=== PATIENT | male | born 1980 | race Caucasian/White ===

== ENCOUNTER 2016-05-13 07:33 | Emergency (ER) | payer SELFPAY ==
[2016-05-13 07:45] VITALS: TEMP 96.9
[2016-05-13] MEDS ORDERED: SODIUM CHLORIDE 0.9% 1000ML 1,000 ML IVS ONE (08:01)
--- NOTE | 2016-05-13 08:05 | ED.PDOC ---
History of Present Illness - General Chief Complaint: General Time Seen by Provider: 05/13/16 07:55 Source: patient - History of Present Illness Initial Comments: C/O WEAKNESS, DIZZINESS, FATIGUE AND COUGH Timing/Duration: other - DAYS Severity: mild Improving Factors: nothing Worsening Factors: nothing Associated Symptoms: cough Allergies/Adverse Reactions: Allergies NO KNOWN ALLERGY Allergy (Verified 12/19/15 23:38) Home Medications: Ambulatory Orders Trifluoperazine HCl 10 mg PO DAILY 05/13/16 Review of Systems - Review of Systems Constitutional: Denies: chills, fever EENTM: Denies: blurred vision, ear pain, throat pain 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 Denies: short of breath, wheezing Cardiology: Denies: chest pain, palpitations, syncope Gastrointestinal/Abdominal: Denies: abdominal pain, diarrhea, nausea, vomiting Genitourinary: States: no symptoms reported Musculoskeletal: States: no symptoms reported Skin: States: no symptoms reported Neurological: States: other - LIGHT HEADEDNESS, NO VERTIGO Endocrine: States: no symptoms reported Hematologic/Lymphatic: States: no symptoms reported Past Medical History (General) - Patient Medical History Hx Seizures: No Hx Stroke: No Hx Dementia: No Hx Asthma: No Hx of COPD: No Hx Cardiac Disorders: No Hx Congestive Heart Failure: No Hx Pacemaker: No Hx Hypertension: Yes Hx Thyroid Disease: No Hx Diabetes: No Hx Gastroesophageal Reflux: No Hx Renal Disease: No Hx of HIV: No Hx MRSA: No Hx Other - free text: SCHIZOPHRENIA - Vaccination History Hx Tetanus, Diphtheria Vaccination: No Hx Influenza Vaccination: No Hx Pneumococcal Vaccination: No - Social History Hx Tobacco Use: Yes Hx Chewing Tobacco Use: No Hx Alcohol Use: Yes Hx Substance Use: No Hx Substance Use Treatment: Yes Hx Depression: No Hx Physical Abuse: No Hx Emotional Abuse: No Hx Suspected Abuse: No Family Medical History - Family History Mother Family History: No Known Living Status: Still Living Physical Exam - Physical Exam General Appearance: Comfortable, No apparent distress, Other - SMELLS OF ETOH Eye Exam: bilateral normal Ears, Nose, Throat: normal ENT inspection, normal pharynx Neck: non-tender, supple, normal inspection Respiratory: lungs clear, normal breath sounds, no respiratory distress Cardiovascular/Chest: regular rate, rhythm, no murmur Gastrointestinal/Abdominal: non tender, soft, no organomegaly Back Exam: normal inspection, no CVA tenderness Extremity: normal range of motion, non-tender, normal inspection Neurologic: no motor/sensory deficits, alert, normal mood/affect, oriented x 3 Skin Exam: normal color Lymphatic: no adenopathy Progress - Progress Progress: 05/13/16 09:45 DISCUSSED WITH PT HIS LAB RESULTS AND THAT I THOUGHT HIS CONDITION WAS VIRAL. HE INSISTS THERE IS SOMETHING WRONG WITH HIM AND IS CONCERNED BECAUSE HE " TASTED RABBIT BLOOD" THE OTHER DAY. I REASSURED HIM THERE WAS NO EVIDENCE AT THIS POINT OF A SYSTEMIC INFECTION AND TOLD HIM WE WOULD REEVALUATE HIS SYMPTOMS AFTER HIS FLUID BOLUS. AFTER ABOUT 300CC OF BOLUS PATIENT STATES HE DOES NOT WANT TO STAY ANYMORE HE WOULD LIKE TO SEE SOMEONE ELSE. HIS RIDE WAS HERE AND ENCOURAGED HIM TO STAY MULTIPLE TIMES BUT HE REFUSED. DISCUSSED RISKS VS BENEFITS OF LEAVING INCLUDING INCOMPLETE W/U, MISSED DIAGNOSIS, PERMANENT DISABILITY AND PT STILL REFUSES TO STAY. SIGNED OUT AMA. Departure - Departure Clinical Impression: Viral syndrome, Alcohol use, Hypokalemia Time of Disposition: 09:52 Disposition: Left Against Medical Advice Condition: Fair Departure Forms: ED Discharge - Pt. Copy, Patient Portal Self Enrollment Home Medications: Ambulatory Orders Trifluoperazine HCl 10 mg PO DAILY 05/13/16
--- NOTE | 2016-05-13 09:01 | RAD ---
EXAM DESCRIPTION: Chest,2 Views CLINICAL HISTORY: 35 years Male, cough COMPARISON: None Available TECHNIQUE: PA/lateral] FINDINGS: There is no cardiac or pulmonary abnormality. The lungs are clear. There is no effusion. IMPRESSION: 1. Normal two-view chest. 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
[2016-05-13] MEDS ORDERED: POTASSIUM CHLORIDE 20 MEQ TAB PO ONE (09:31)
[2016-05-13 09:33] VITALS: BP 133/91; O2SAT 98
== END 2016-05-13 09:45 | disposition left against medical advice (07) ==
LOC: ER 07:33
DX: B34.9 Viral infection, unspecified (principal); E87.6 Hypokalemia; F10.10 Alcohol abuse, uncomplicated; I10 Essential (primary) hypertension; R42 Dizziness and giddiness; F20.9 Schizophrenia, unspecified; Z87.891 Personal history of nicotine dependence
CPT/HCPCS: 36415; 71020; 80053; 80320; 85025; J7030

== ENCOUNTER 2016-05-18 02:35 | Emergency (ER) | payer SELFPAY ==
[2016-05-18 03:17] VITALS: TEMP 98
--- NOTE | 2016-05-18 03:46 | ED.PDOC ---
History of Present Illness - General Chief Complaint: Behavioral / Psych Stated Complaint: hearing voices, plans to kill himself Time Seen by Provider: 05/18/16 03:40 Source: patient - History of Present Illness Initial Comments: Cholo Wilder 35 y/o male with history of schizophrenia stated he plans to kill himself tonight his psychotropic medicine not working medicine .He had been hearing voices tonight. Timing/Duration: this evening Severity: severe Associated Symptoms: suicidal ideation Allergies/Adverse Reactions: Allergies NO KNOWN ALLERGY Allergy (Verified 12/19/15 23:38) Home Medications: Ambulatory Orders Trifluoperazine HCl 10 mg PO DAILY 05/13/16 Review of Systems - Review of Systems Constitutional: States: no symptoms reported EENTM: States: no symptoms reported Respiratory: States: no symptoms reported Cardiology: States: no symptoms reported Gastrointestinal/Abdominal: States: no symptoms reported Genitourinary: States: no symptoms reported Musculoskeletal: States: no symptoms reported Skin: States: no symptoms reported Neurological: States: see HPI, other - hearing voices Past Medical History (General) - Patient Medical History Hx Seizures: No Hx Stroke: No Hx Dementia: No Hx Asthma: No Hx of COPD: No Hx Cardiac Disorders: No Hx Congestive Heart Failure: No Hx Pacemaker: No Hx Hypertension: Yes Hx Thyroid Disease: No Hx Diabetes: No Hx Gastroesophageal Reflux: No Hx Renal Disease: No Hx of HIV: No Hx MRSA: No Hx Other PMH: Yes - [facility] in the past Surgical History: other - back - Vaccination History Hx Tetanus, Diphtheria Vaccination: No Hx Influenza Vaccination: No Hx Pneumococcal Vaccination: No Immunizations Up to Date: Yes - Social History Hx Tobacco Use: Yes Cigarettes Packs Per Day: 1 Hx Chewing Tobacco Use: No Hx Alcohol Use: Yes Hx Substance Use: Yes Hx Substance Use Treatment: Yes Hx Depression: No Hx Physical Abuse: No Hx Emotional Abuse: No Hx Suspected Abuse: No - Activities of Daily Living Patient Lives Alone: No - family Family Medical History - Family History Mother Family History: No Known Living Status: Still Living Physical Exam - Physical Exam General Appearance: Alert, Anxious, No apparent distress Eyes, Ears, Nose, Throat Exam: PERRL/EOMI, normal ENT inspection, TMs normal Neck: non-tender, full range of motion, supple Respiratory: chest non-tender, lungs clear, normal breath sounds, no respiratory distress Cardiovascular/Chest: normal peripheral pulses, regular rate, rhythm, no edema, no gallop, no JVD, no murmur Peripheral Pulses: radial,right: 2+, radial,left: 2+ Gastrointestinal/Abdominal: normal bowel sounds, non tender, soft Extremities Exam: non-tender, normal range of motion, no evidence of injury Neurological: alert, calm, oriented x 3, flat Appearance: appropriate appearance, neat Behavior/Eye Contact/Speech: cooperative, good eye contact Thoughts/Hallucinations: auditory hallucinations, other - suicidal thoughts Skin Exam: normal color, warm/dry Progress - Results/Orders Results/Orders: 05/18/16 03:25 CBC (AUTOMATED) W/AUTO DIFF Stat UA [URINALYSIS] Stat Laboratory Results Sodium 127 mmol/L (135-145) L 05/18/16 03:25 Potassium 4.3 mmol/L (3.6-5.0) 05/18/16 03:25 Chloride 93 mmol/L (101-111) L 05/18/16 03:25 Carbon Dioxide 26 mmol/L (21-31) 05/18/16 03:25 Anion Gap 12.3 (12-18) 05/18/16 03:25 BUN 6 mg/dL (7-18) L 05/18/16 03:25 Creatinine 1.06 mg/dL (0.6-1.3) 05/18/16 03:25 BUN/Creatinine Ratio 5.7 (10-20) L 05/18/16 03:25 Random Glucose 101 mg/dL (70-105) 05/18/16 03:25 Serum Osmolality 253.0 mOsm/L (275-295) L* 05/18/16 03:25 Calcium 9.3 mg/dL (8.4-10.2) 05/18/16 03:25 Total Bilirubin 0.5 mg/dL (0.2-1.0) 05/18/16 03:25 AST 32 IU/L (10-42) 05/18/16 03:25 ALT 20 IU/L (10-60) 05/18/16 03:25 Alkaline Phosphatase 53 IU/L (42-121) 05/18/16 03:25 Serum Total Protein 7.4 gm/dL (6.4-8.2) 05/18/16 03:25 Albumin 4.1 g/dl (3.2-5.5) 05/18/16 03:25 Globulin 3.3 gm/dL (2.3-3.5) 05/18/16 03:25 Albumin/Globulin Ratio 1.2 (1.1-1.9) 05/18/16 03:25 Urine Opiates Screen Negative ng/mL (2000) 05/18/16 03:25 Urine Barbiturates Negative ng/mL (200) 05/18/16 03:25 Ur Phencyclidine Scrn Negative ng/mL (25) 05/18/16 03:25 U Amphetamin/Meth Scrn Negative ng/mL (1000) 05/18/16 03:25 U Benzodiazepines Scrn Negative ng/mL (200) 05/18/16 03:25 U Cocaine Metab Screen Negative ng/mL (300) 05/18/16 03:25 U Cannabinoids Screen Negative ng/mL (50) 05/18/16 03:25 Ethyl Alcohol < 5.40 mg/dL (0-79) 05/18/16 03:25 Laboratory Results WBC 7.1 K/mm3 (4.8-10.8) 05/18/16 03:25 RBC 4.38 M/mm3 (4.70-6.10) L 05/18/16 03:25 Hgb 14.6 gm/dL (14.0-18.0) 05/18/16 03:25 Hct 42.1 % (42.0-52.0) 05/18/16 03:25 MCV 96.2 fl (80.0-94.0) H 05/18/16 03:25 MCH 33.3 pg (27.0-31.0) H 05/18/16 03:25 MCHC 34.8 g/dL (33.0-37.0) 05/18/16 03:25 RDW 13.4 % (11.5-14.5) 05/18/16 03:25 Plt Count 259 K/mm3 (130-400) 05/18/16 03:25 MPV 8.0 fl (7.40-10.4) 05/18/16 03:25 Absolute Neuts (auto) 5.10 K/uL (1.8-6.8) 05/18/16 03:25 Absolute Lymphs (auto) 1.50 K/uL (1.0-3.4) 05/18/16 03:25 Absolute Monos (auto) 0.50 K/uL (0.2-0.8) 05/18/16 03:25 Absolute Eos (auto) 0.00 K/uL (0.0-0.4) 05/18/16 03:25 Absolute Basos (auto) 0.00 K/uL (0.0-0.1) 05/18/16 03:25 Neutrophils % 71.3 % (42.0-78.0) 05/18/16 03:25 Lymphocytes % 20.7 % (20.0-50.0) 05/18/16 03:25 Monocytes % 7.0 % (2.0-9.0) 05/18/16 03:25 Eosinophils % 0.6 % (1.0-5.0) L 05/18/16 03:25 Basophils % 0.4 % (0.0-2.0) 05/18/16 03:25 Sodium 127 mmol/L (135-145) L 05/18/16 03:25 Potassium 4.3 mmol/L (3.6-5.0) 05/18/16 03:25 Chloride 93 mmol/L (101-111) L 05/18/16 03:25 Carbon Dioxide 26 mmol/L (21-31) 05/18/16 03:25 Anion Gap 12.3 (12-18) 05/18/16 03:25 BUN 6 mg/dL (7-18) L 05/18/16 03:25 Creatinine 1.06 mg/dL (0.6-1.3) 05/18/16 03:25 BUN/Creatinine Ratio 5.7 (10-20) L 05/18/16 03:25 Random Glucose 101 mg/dL (70-105) 05/18/16 03:25 Serum Osmolality 253.0 mOsm/L (275-295) L* 05/18/16 03:25 Calcium 9.3 mg/dL (8.4-10.2) 05/18/16 03:25 Total Bilirubin 0.5 mg/dL (0.2-1.0) 05/18/16 03:25 AST 32 IU/L (10-42) 05/18/16 03:25 ALT 20 IU/L (10-60) 05/18/16 03:25 Alkaline Phosphatase 53 IU/L (42-121) 05/18/16 03:25 Serum Total Protein 7.4 gm/dL (6.4-8.2) 05/18/16 03:25 Albumin 4.1 g/dl (3.2-5.5) 05/18/16 03:25 Globulin 3.3 gm/dL (2.3-3.5) 05/18/16 03:25 Albumin/Globulin Ratio 1.2 (1.1-1.9) 05/18/16 03:25 Urine Color Yellow (Yellow) 05/18/16 03:25 Urine Appearance Clear (Clear) 05/18/16 03:25 Urine pH 6.5 (4.5-7.8) 05/18/16 03:25 Ur Specific [place] <= 1.005 (1.005-1.030) 05/18/16 03:25 Urine Protein Negative mg/dL 05/18/16 03:25 Urine Glucose (UA) Negative mg/dL (Negative) 05/18/16 03:25 Urine Ketones Negative mg/dL (NEGATIVE) 05/18/16 03:25 Urine Blood Negative (Negative) 05/18/16 03:25 Urine Nitrite Negative 05/18/16 03:25 Urine Bilirubin Negative (NEGATIVE) 05/18/16 03:25 Urine Urobilinogen 0.2 mg/dL (0.2-1.0) 05/18/16 03:25 Ur Leukocyte Esterase Negative (Negative) 05/18/16 03:25 Urine RBC 0 /hpf 05/18/16 03:25 Urine WBC 0 /hpf 05/18/16 03:25 Ur Epithelial Cells 0 /hpf 05/18/16 03:25 Urine Bacteria 0 05/18/16 03:25 Urine Opiates Screen Negative ng/mL (2000) 05/18/16 03:25 Urine Barbiturates Negative ng/mL (200) 05/18/16 03:25 Ur Phencyclidine Scrn Negative ng/mL (25) 05/18/16 03:25 U Amphetamin/Meth Scrn Negative ng/mL (1000) 05/18/16 03:25 U Benzodiazepines Scrn Negative ng/mL (200) 05/18/16 03:25 U Cocaine Metab Screen Negative ng/mL (300) 05/18/16 03:25 U Cannabinoids Screen Negative ng/mL (50) 05/18/16 03:25 Ethyl Alcohol < 5.40 mg/dL (0-79) 05/18/16 03:25 Departure - Departure Clinical Impression: Acute psychosis Time of Disposition: 04:31 - D/W [facility] Disposition: Transfer to [facility] Hospital Condition: Fair Departure Forms: ED Discharge - Pt. Copy, Patient Portal Self Enrollment Home Medications: Ambulatory Orders Trifluoperazine HCl 10 mg PO DAILY 05/13/16 Comments: PATIENT WILL BE TRANSFERRED TO [facility] IN [place] AND PSYCHIATRIC EVALUATION WILL BE DONE IN AM FOR ANY FURTHER TREATMENT.
[2016-05-18] MEDS ORDERED: HALOPERIDOL LACTATE INJ 5 MG/ML VIAL IM ONE (04:27)
[2016-05-18] MEDS ORDERED: diphenhydrAMINE HCL 50 MG/ML VIAL IM ONE (04:27)
[2016-05-18 05:54] VITALS: BP 141/94; O2SAT 100
== END 2016-05-18 05:20 ==
LOC: ER 02:35
DX: F23 Brief psychotic disorder (principal); R45.851 Suicidal ideations; F20.9 Schizophrenia, unspecified; F17.210 Nicotine dependence, cigarettes, uncomplicated; I10 Essential (primary) hypertension; Z79.899 Other long term (current) drug therapy
CPT/HCPCS: 36415; 80053; 80307; 80320; 81001; 85025; J1200; J1630; J2060